=== PATIENT | female | born 1940 | race Caucasian/White ===

== ENCOUNTER 2022-08-05 19:42 | Emergency (ER) | payer MEDICARE ==
[~2022-08-05] VITALS: Ht 162.6 cm; Wt 63.5 kg
[~2022-08-05 19:42] MED LIST: CARISOPRODOL350 MG PO; CELEXA20 MG PO; CRESTOR10 MG PO; EVISTA60 MG PO; LEVAQUIN500 MG PO; LEVOFLOXACIN500 MG PO; PREDNISONE10 MG PO; TYLENOL WITH C1 EACH PO
[2022-08-05 22:06] VITALS: BP 147/41
== END 2022-08-05 22:20 | disposition home or self-care (01) ==
LOC: ER 19:58
DX: S09.90XA Unspecified injury of head, initial encounter (principal); W01.0XXA Fall on same level from slipping, tripping and stumbling without subsequent striking against object, initial encounter
CPT/HCPCS: 70450; 72125; 93005; 99283

== ENCOUNTER → 2023-03-19 | Outpatient (REF) | payer MEDICARE ==
[~2023-03-19] MED LIST changes: +ALENDRONATE SOD70 MG PO; +ARICEPT10 MG PO; +ASPIRIN CHEW81 MG PO; +ATORVASTATIN CA20 MG PO; +LISINOPRIL5 MG PO; +MACROBID 100 M100 MG PO; +MECLIZINE HCL12.5 MG PO; +MIDODRINE HCL5 MG PO; +NAMENDA10 MG PO; +ONDANSETRON ODT4 MG PO; +PANTOPRAZOLE SO40 MG PO; +TYLENOL #3 PO
== END ==
LOC: US 13:29
PROVIDERS: ATTEND Internal Medicine Gastroenterology
DX: R10.10 Upper abdominal pain, unspecified (principal); R11.0 Nausea
CPT/HCPCS: 76700

== ENCOUNTER 2024-02-11 10:23 | Inpatient (IN) | payer MEDICARE ==
[~2024-02-11] VITALS: Ht 162.6 cm; Wt 48.1 kg
[2024-02-11] VITALS (7 sets, daily range): BP systolic 117–131; BP diastolic 61–67; PULSE 77–86; RESP 16–18; TEMP 97.3–98.6; O2SAT 95–99
[2024-02-11 11:26] LABS: BASOPHILS # (AUTO) 0.1 (0.0-0.1); BASOPHILS % 0.5 % (0.0-1.0); EOSINOPHILS # (AUTO) 0.2 (0.0-0.4); EOSINOPHILS % 1.6 % (0.0-6.0); HEMATOCRIT 41.7 % (34.2-44.1); HEMOGLOBIN 13.2 g/dL (12.0-16.0); LYMPHOCYTES # (AUTO) 1.2 (1.0-3.2); MEAN CORPUSCULAR HEMOGLOBIN 29.3 pg (28-32); MEAN CORPUSCULAR HGB CONC 31.7 g/dL (31-35); MEAN CORPUSCULAR VOLUME 92.7 fL (81-99); MONOCYTES # (AUTO) 1.1 (0.2-0.8); MONOCYTES % 7.8 % (4.4-11.3); NEUTROPHILS # (AUTO) 10.9 (2.1-6.9); NEUTROPHILS % 80.2 % (38.7-80.0); PLATELET COUNT 155 x10e3/uL (140-360); RED CELL DISTRIBUTION WIDTH 13.2 % (11.7-14.4); WHITE BLOOD COUNT 13.54 x10e3/uL (4.8-10.8)
[2024-02-11 11:47] LABS: ALBUMIN 3.4 g/dL (3.5-5.0); ALBUMIN/GLOBULIN RATIO 1.1 (0.8-2.0); ANION GAP 17.2 mmol/L (8-16); BILIRUBIN,TOTAL 0.6 mg/dL (0.2-1.2); CREATININE, SERUM 1.43 mg/dL (0.57-1.11); POTASSIUM 4.2 mmol/L (3.5-5.1); TOTAL PROTEIN 6.6 g/dL (6.5-8.1)
[2024-02-11] MEDS: SODIUM CHLORIDE 0.9% 1000ML 1,000 ML IV ONE (14:00)
[2024-02-11] MEDS: ACETAMINOPHEN 325 MG TAB PO ONE (14:01)
[2024-02-11] MEDS ORDERED: ACETAMINOPHEN 325 MG TAB ONE (14:02)
[2024-02-11] MEDS: SODIUM CHLORIDE 0.9% 1000ML 1,000 ML IV SCH (16:27)
[2024-02-11 17:59] LABS: BODY FLUID COLOR YELLOW; BODY FLUID TYPE PERITONEAL
[2024-02-11] MEDS ORDERED: MIDODRINE HCL 5 MG TABLET PO PRN (18:00)
[2024-02-11 18:38] LABS: BODY FLUID APPEARANCE CLOUDY; RBC,BODY FLUID 4000 cells/uL; WBC,BODY FLUID 1900 cells/uL
[2024-02-11 19:53] LABS: LYMPHOCYTES,BODY FLUID 46 %; MONO/MACROPHG,BODY FLUID 11 %; NEUTROPHILS,BODY FLUID 15 %; OTHER CELLS,BODY FLUID 28 %; TOTAL CELLS COUNTED (DIFF) 100
[2024-02-11] MEDS: ACETAMINOPHEN 325 MG TAB PO PRN (21:47)
[2024-02-12] VITALS (8 sets, daily range): BP systolic 120–152; BP diastolic 45–82; PULSE 66–94; RESP 16–19; TEMP 97–98.2; O2SAT 95–98
[2024-02-12 06:19] LABS: BASOPHILS # (AUTO) 0.1 (0.0-0.1); BASOPHILS % 0.4 % (0.0-1.0); EOSINOPHILS # (AUTO) 0.2 (0.0-0.4); EOSINOPHILS % 1.2 % (0.0-6.0); HEMATOCRIT 38.1 % (34.2-44.1); HEMOGLOBIN 11.8 g/dL (12.0-16.0); LYMPHOCYTES # (AUTO) 1.5 (1.0-3.2); MEAN CORPUSCULAR HEMOGLOBIN 29.1 pg (28-32); MEAN CORPUSCULAR VOLUME 93.8 fL (81-99); MONOCYTES # (AUTO) 1.1 (0.2-0.8); MONOCYTES % 8.1 % (4.4-11.3); NEUTROPHILS # (AUTO) 10.8 (2.1-6.9); NEUTROPHILS % 78.5 % (38.7-80.0); PLATELET COUNT 136 x10e3/uL (140-360); RED BLOOD COUNT 4.06 x10e6/uL (3.6-5.1); RED CELL DISTRIBUTION WIDTH 13.2 % (11.7-14.4); WHITE BLOOD COUNT 13.78 x10e3/uL (4.8-10.8)
[2024-02-12 06:40] LABS: ALBUMIN 2.8 g/dL (3.5-5.0); ALBUMIN/GLOBULIN RATIO 1.1 (0.8-2.0); ANION GAP 13.8 mmol/L (8-16); BILIRUBIN,TOTAL 0.5 mg/dL (0.2-1.2); CALCIUM 8.7 mg/dL (8.4-10.2); CREATININE, SERUM 1.19 mg/dL (0.57-1.11); POTASSIUM 3.8 mmol/L (3.5-5.1); TOTAL PROTEIN 5.3 g/dL (6.5-8.1)
[2024-02-12] MEDS: CEFTRIAXONE 2 GM in SODIUM CHLORIDE 0.9% 100 ML IV SCH (15:04)
[2024-02-12] MEDS: Morphine 2mg Syringe 2 MG/ML SYR IV PRN (17:36)
[2024-02-12] MEDS: DONEPEZIL HCL 5 MG TAB PO SCH (21:20)
[2024-02-13] VITALS: BP 128/64; PULSE 89; RESP 16; TEMP 97.5; O2SAT 95
[2024-02-13 05:33] LABS: BASOPHILS # (AUTO) 0.1 (0.0-0.1); BASOPHILS % 0.4 % (0.0-1.0); EOSINOPHILS # (AUTO) 0.1 (0.0-0.4); EOSINOPHILS % 0.7 % (0.0-6.0); HEMATOCRIT 36.9 % (34.2-44.1); HEMOGLOBIN 11.8 g/dL (12.0-16.0); LYMPHOCYTES # (AUTO) 1.2 (1.0-3.2); MEAN CORPUSCULAR HEMOGLOBIN 29.7 pg (28-32); MEAN CORPUSCULAR VOLUME 92.9 fL (81-99); MONOCYTES % 7.3 % (4.4-11.3); NEUTROPHILS # (AUTO) 11.1 (2.1-6.9); NEUTROPHILS % 81.4 % (38.7-80.0); PLATELET COUNT 144 x10e3/uL (140-360); RED BLOOD COUNT 3.97 x10e6/uL (3.6-5.1); RED CELL DISTRIBUTION WIDTH 13.4 % (11.7-14.4); WHITE BLOOD COUNT 13.65 x10e3/uL (4.8-10.8)
[2024-02-13 05:47] LABS: ALBUMIN 2.6 g/dL (3.5-5.0); ANION GAP 12.9 mmol/L (8-16); BILIRUBIN,TOTAL 0.4 mg/dL (0.2-1.2); CALCIUM 8.4 mg/dL (8.4-10.2); CREATININE, SERUM 1.13 mg/dL (0.57-1.11); MAGNESIUM 1.9 MG/DL (1.3-2.1); POTASSIUM 3.9 mmol/L (3.5-5.1); TOTAL PROTEIN 5.1 g/dL (6.5-8.1)
[2024-02-13 06:23] VITALS: BP 139/66; PULSE 88; RESP 16; TEMP 97.3; O2SAT 97
[2024-02-13 07:08] LABS: FERRITIN 185.26 ng/mL (4.63-204.00)
[2024-02-13 08:00] VITALS: BP_SYST 139; BP_SYST 144; BP_DIAS 66; BP_DIAS 68; PULSE 87; PULSE 88; RESP 16; RESP 20; TEMP 97.3; TEMP 97.7; O2SAT 97; O2SAT 98
[2024-02-13] MEDS: MEMANTINE 28 MG PO SCH (09:00)
[2024-02-13] MEDS: DICYCLOMINE HCL 10 MG CAP PO PRN (10:57)
[2024-02-13 12:00] VITALS: BP 126/50; PULSE 88; RESP 18; TEMP 98.3; O2SAT 100
[2024-02-13 14:22] LABS: ALPHA FETO-PROTEIN 2.6 ng/mL (0.0-8.7)
[2024-02-13 19:30] LABS: BILIRUBIN,URINE NEGATIVE (NEGATIVE); CLARITY,URINE CLOUDY (CLEAR); COLOR,URINE YELLOW (YELLOW); GLUCOSE, URINE NEGATIVE (NEGATIVE); KETONES,URINE NEGATIVE (NEGATIVE); LEUKOCYTE ESTERASE ,URINE NEGATIVE (NEGATIVE); NITRITE,URINE NEGATIVE (NEGATIVE); PH,URINE 5.5 (5 - 7); PROTEIN,URINE DIPSTICK 1+ (NEGATIVE); URINE UROBILINOGEN 0.2 mg/dL (0.2 - 1)
[2024-02-13 19:42] LABS: AMORPHOUS SEDIMENT,URINE MANY (FEW); BACTERIA,URINE MANY /HPF; EPITHELIAL CELLS,URINE FEW /LPF; URIC ACID CRYSTALS,URINE FEW (FEW)
[2024-02-13 20:00] VITALS: BP 116/50; PULSE 86; RESP 17; TEMP 98.4; O2SAT 100
[2024-02-14] VITALS (7 sets, daily range): BP systolic 113–149; BP diastolic 48–75; PULSE 72–90; RESP 17–18; TEMP 97.3–98.9; O2SAT 97–100
[2024-02-14 05:59] LABS: BASOPHILS # (AUTO) 0.1 (0.0-0.1); BASOPHILS % 0.4 % (0.0-1.0); EOSINOPHILS # (AUTO) 0.1 (0.0-0.4); EOSINOPHILS % 0.9 % (0.0-6.0); HEMATOCRIT 35.1 % (34.2-44.1); HEMOGLOBIN 10.9 g/dL (12.0-16.0); LYMPHOCYTES # (AUTO) 1.2 (1.0-3.2); LYMPHOCYTES % 8.1 % (18.0-39.1); MEAN CORPUSCULAR HEMOGLOBIN 29.5 pg (28-32); MEAN CORPUSCULAR HGB CONC 31.1 g/dL (31-35); MEAN CORPUSCULAR VOLUME 95.1 fL (81-99); MONOCYTES # (AUTO) 1.3 (0.2-0.8); MONOCYTES % 8.8 % (4.4-11.3); NEUTROPHILS # (AUTO) 11.9 (2.1-6.9); NEUTROPHILS % 80.5 % (38.7-80.0); PLATELET COUNT 125 x10e3/uL (140-360); RED BLOOD COUNT 3.69 x10e6/uL (3.6-5.1); RED CELL DISTRIBUTION WIDTH 13.8 % (11.7-14.4); WHITE BLOOD COUNT 14.72 x10e3/uL (4.8-10.8)
[2024-02-14 06:29] LABS: ALBUMIN 2.2 g/dL (3.5-5.0); ALBUMIN/GLOBULIN RATIO 0.7 (0.8-2.0); BILIRUBIN,TOTAL 0.4 mg/dL (0.2-1.2); CALCIUM 8.1 mg/dL (8.4-10.2); CREATININE, SERUM 0.89 mg/dL (0.57-1.11); TOTAL PROTEIN 5.2 g/dL (6.5-8.1)
[2024-02-14 09:16] LABS: INR 1.09; PROTHROMBIN TIME 14.7 seconds (11.9-14.5)
[2024-02-14] MEDS: SODIUM CHLORIDE 0.9% 250ML 250 ML ONE (09:39)
[2024-02-15] VITALS (11 sets, daily range): BP systolic 118–154; BP diastolic 52–65; PULSE 64–81; RESP 16–19; TEMP 98.1–99; O2SAT 94–98
[2024-02-15 06:07] LABS: BASOPHILS # (AUTO) 0.1 (0.0-0.1); BASOPHILS % 0.9 % (0.0-1.0); EOSINOPHILS # (AUTO) 0.3 (0.0-0.4); EOSINOPHILS % 2.7 % (0.0-6.0); HEMATOCRIT 37.7 % (34.2-44.1); HEMOGLOBIN 11.1 g/dL (12.0-16.0); LYMPHOCYTES % 8.1 % (18.0-39.1); MEAN CORPUSCULAR HEMOGLOBIN 29.3 pg (28-32); MEAN CORPUSCULAR HGB CONC 29.4 g/dL (31-35); MEAN CORPUSCULAR VOLUME 99.5 fL (81-99); MONOCYTES # (AUTO) 1.1 (0.2-0.8); MONOCYTES % 8.9 % (4.4-11.3); NEUTROPHILS # (AUTO) 9.5 (2.1-6.9); NEUTROPHILS % 78.2 % (38.7-80.0); PLATELET COUNT 131 x10e3/uL (140-360); RED BLOOD COUNT 3.79 x10e6/uL (3.6-5.1); RED CELL DISTRIBUTION WIDTH 14.2 % (11.7-14.4); WHITE BLOOD COUNT 12.17 x10e3/uL (4.8-10.8)
[2024-02-15 06:43] LABS: ALBUMIN/GLOBULIN RATIO 0.7 (0.8-2.0); ANION GAP 11.2 mmol/L (8-16); BILIRUBIN,TOTAL 0.4 mg/dL (0.2-1.2); CREATININE, SERUM 0.82 mg/dL (0.57-1.11); POTASSIUM 4.2 mmol/L (3.5-5.1); TOTAL PROTEIN 4.8 g/dL (6.5-8.1)
[2024-02-15] MEDS: TRAMADOL HCL 50 MG TAB PO PRN (08:50)
[2024-02-15] MEDS: ONDANSETRON HCL INJ 2MG/ML 2ML 2 MG/ML VIAL IV PRN (12:12)
[2024-02-15] MEDS ORDERED: LIDOCAINE HCL 1% LOCAL INJ 20 ML VIAL ONE (14:19)
[2024-02-15] MEDS ORDERED: MIDAZOLAM HCL 2 MG/2 ML VIAL ONE (14:35)
[2024-02-15] MEDS ORDERED: FENTANYL CITRATE/PF 100MCG/2 ML INJ ONE (14:35)
[2024-02-15] MEDS ORDERED: CIPRO500 MG PO (17:57)
[2024-02-15] MEDS ORDERED: DICYCLOMINE HCL10 MG PO (17:57)
[2024-02-16] VITALS: BP 131/59; PULSE 80; RESP 18; TEMP 98.4; O2SAT 95
[2024-02-16 06:09] LABS: BASOPHILS # (AUTO) 0.1 (0.0-0.1); BASOPHILS % 0.4 % (0.0-1.0); EOSINOPHILS # (AUTO) 0.2 (0.0-0.4); EOSINOPHILS % 1.6 % (0.0-6.0); HEMATOCRIT 34.5 % (34.2-44.1); HEMOGLOBIN 10.6 g/dL (12.0-16.0); MEAN CORPUSCULAR HGB CONC 30.7 g/dL (31-35); MEAN CORPUSCULAR VOLUME 94.3 fL (81-99); MONOCYTES # (AUTO) 1.2 (0.2-0.8); MONOCYTES % 9.6 % (4.4-11.3); NEUTROPHILS # (AUTO) 10.1 (2.1-6.9); NEUTROPHILS % 79.1 % (38.7-80.0); PLATELET COUNT 156 x10e3/uL (140-360); RED BLOOD COUNT 3.66 x10e6/uL (3.6-5.1); RED CELL DISTRIBUTION WIDTH 13.9 % (11.7-14.4); WHITE BLOOD COUNT 12.77 x10e3/uL (4.8-10.8)
[2024-02-16 06:52] LABS: ALBUMIN 1.9 g/dL (3.5-5.0); ALBUMIN/GLOBULIN RATIO 0.6 (0.8-2.0); ANION GAP 13.1 mmol/L (8-16); BILIRUBIN,TOTAL 0.4 mg/dL (0.2-1.2); CALCIUM 8.5 mg/dL (8.4-10.2); CREATININE, SERUM 0.86 mg/dL (0.57-1.11); MAGNESIUM 1.8 MG/DL (1.3-2.1); POTASSIUM 4.1 mmol/L (3.5-5.1); TOTAL PROTEIN 4.9 g/dL (6.5-8.1)
[2024-02-16 08:37] VITALS: BP 145/64; PULSE 71; RESP 18; TEMP 97.9; O2SAT 97
[2024-02-16 11:01] VITALS: BP 145/64; PULSE 71; RESP 18; TEMP 97.9; O2SAT 97
[2024-02-16 12:31] VITALS: BP 149/57; PULSE 74; RESP 20; TEMP 98; O2SAT 95
[2024-02-16] MEDS ORDERED: ONDANSETRON HCL 4 MG ORAL DISINTEGRATING TAB PO PRN (13:45)
[2024-02-16 15:42] VITALS: BP 122/43; PULSE 74; RESP 18; TEMP 98.4; O2SAT 96
[2024-02-16] MEDS ORDERED: PANTOPRAZOLE SOD 40 MG TABEC PO SCH (16:30)
== END 2024-02-16 15:30 | disposition home health service (06) | DRG 987 ==
LOC: ER 10:47 → ERHOLD 13:15 → MED/SURG2 14:54 → OBSVTOIN 02-12 13:45
PROVIDERS: ADMIT Internal Medicine; ATTEND Internal Medicine
PROC: 0W9G3ZZ Drainage of Peritoneal Cavity, Percutaneous Approach (ICD-10-PCS; principal; 2024-02-11)
PROC: 07B73ZX Excision of Thorax Lymphatic, Percutaneous Approach, Diagnostic (ICD-10-PCS; 2024-02-15)
DX: C54.9 Malignant neoplasm of corpus uteri, unspecified (principal); K65.2 Spontaneous bacterial peritonitis; C78.6 Secondary malignant neoplasm of retroperitoneum and peritoneum; R18.0 Malignant ascites; N17.9 Acute kidney failure, unspecified; Z68.1 Body mass index [BMI] 19.9 or less, adult; F02.B4 Dementia in other diseases classified elsewhere, moderate, with anxiety; E44.0 Moderate protein-calorie malnutrition; G30.9 Alzheimer's disease, unspecified; R19.7 Diarrhea, unspecified; I10 Essential (primary) hypertension; E78.5 Hyperlipidemia, unspecified; Z71.3 Dietary counseling and surveillance; B00.9 Herpesviral infection, unspecified; D72.829 Elevated white blood cell count, unspecified; D64.9 Anemia, unspecified; D69.6 Thrombocytopenia, unspecified; F33.41 Major depressive disorder, recurrent, in partial remission; K21.9 Gastro-esophageal reflux disease without esophagitis; M81.0 Age-related osteoporosis without current pathological fracture; Z80.9 Family history of malignant neoplasm, unspecified; D75.89 Other specified diseases of blood and blood-forming organs; Z79.899 Other long term (current) drug therapy
CPT/HCPCS: 36415; 38505; 49083; 74176; 74470; 77012; 80053; 81001; 82040; 82105; 82378; 82607; 82728; 83540; 83605; 83615; 83690; 83735; 84157; 84443; 84466; 85025; 85610; 86301; 86304; 87070; 87205; 88112; 88305; 88342; 89051; 99153; 99284; G0378; J0696; J2003; J2250; J2270; J2405; J2470; J7030; J7050

== ENCOUNTER 2024-02-22 07:15 | Inpatient (IN) | payer MEDICARE ==
[~2024-02-22] VITALS: Ht 162.6 cm; Wt 48.1 kg
[2024-02-22 07:15] VITALS: TEMP 98.2
[~2024-02-22 07:15] MED LIST changes: +CIPRO500 MG PO; +DICYCLOMINE HCL10 MG PO
[2024-02-22 07:36] LABS: BASOPHILS # (AUTO) 0.1 (0.0-0.1); BASOPHILS % 0.4 % (0.0-1.0); EOSINOPHILS # (AUTO) 0.2 (0.0-0.4); EOSINOPHILS % 1.1 % (0.0-6.0); HEMATOCRIT 36.4 % (34.2-44.1); HEMOGLOBIN 11.4 g/dL (12.0-16.0); LYMPHOCYTES # (AUTO) 0.9 (1.0-3.2); LYMPHOCYTES % 4.8 % (18.0-39.1); MEAN CORPUSCULAR HEMOGLOBIN 28.5 pg (28-32); MEAN CORPUSCULAR HGB CONC 31.3 g/dL (31-35); MONOCYTES # (AUTO) 1.1 (0.2-0.8); NEUTROPHILS # (AUTO) 16.2 (2.1-6.9); NEUTROPHILS % 86.4 % (38.7-80.0); PLATELET COUNT 206 x10e3/uL (140-360); RED CELL DISTRIBUTION WIDTH 14.1 % (11.7-14.4); WHITE BLOOD COUNT 18.76 x10e3/uL (4.8-10.8)
[2024-02-22 08:02] LABS: ALBUMIN 2.5 g/dL (3.5-5.0); ALBUMIN/GLOBULIN RATIO 0.8 (0.8-2.0); ANION GAP 14.4 mmol/L (8-16); BILIRUBIN,TOTAL 0.7 mg/dL (0.2-1.2); CALCIUM 9.3 mg/dL (8.4-10.2); CREATININE, SERUM 1.02 mg/dL (0.57-1.11); POTASSIUM 4.4 mmol/L (3.5-5.1); TOTAL PROTEIN 5.5 g/dL (6.5-8.1)
[2024-02-22] MEDS ORDERED: IOPAMIDOL 370 MG/ML 100 ML INFUS..BTL INJ ONE (08:37)
[2024-02-22 09:02] LABS: CLARITY,URINE SL CLOUDY (CLEAR); COLOR,URINE YELLOW (YELLOW)
[2024-02-22 09:03] LABS: BILIRUBIN,URINE NEGATIVE (NEGATIVE); GLUCOSE, URINE NEGATIVE (NEGATIVE); KETONES,URINE NEGATIVE (NEGATIVE); LEUKOCYTE ESTERASE ,URINE NEGATIVE (NEGATIVE); NITRITE,URINE NEGATIVE (NEGATIVE); PH,URINE 5.5 (5 - 7); PROTEIN,URINE DIPSTICK 1+ (NEGATIVE); URINE UROBILINOGEN 0.2 mg/dL (0.2 - 1)
[2024-02-22 09:08] LABS: BACTERIA,URINE MODERATE /HPF; EPITHELIAL CELLS,URINE MANY /LPF; RBC,URINE 0-5 /HPF (0-5); WBC,URINE (MAN) 0-5 /HPF (0-5)
[2024-02-22] MEDS ORDERED: HEPARIN SOD/DEXTROSE 5% 25000 UNIT/250 ML BAG IV SCH (09:45)
[2024-02-22] MEDS ORDERED: HEPARIN SOD (PORCINE) 5,000 UNIT/ML VIAL IV ONE (09:45)
[2024-02-22] MEDS ORDERED: SODIUM CHLORIDE FLUSH 10 ML SYR INJ PRN (09:45)
[2024-02-22] MEDS ORDERED: ONDANSETRON HCL INJ 2MG/ML 2ML 2 MG/ML VIAL IV PRN (09:45)
[2024-02-22] MEDS ORDERED: HEPARIN 25,000 UNIT/D5W 250ML 250 ML IV SCH (10:00)
[2024-02-22] MEDS ORDERED: ACETAMINOPHEN 325 MG TAB PO PRN (10:45)
[2024-02-22 11:56] LABS: INR 1.11; PROTHROMBIN TIME 14.9 seconds (11.9-14.5)
[2024-02-22 12:01] VITALS: PULSE 91; RESP 18
[2024-02-22] MEDS: SODIUM CHLORIDE 0.9% 1000ML 1,000 ML IV ONE (12:06)
[2024-02-22] MEDS: CEFTRIAXONE 2 GM in SODIUM CHLORIDE 0.9% 100 ML IV SCH (12:08)
[2024-02-22] MEDS: ONDANSETRON HCL INJ 2MG/ML 2ML 2 MG/ML VIAL IV STA (12:09)
[2024-02-22] MEDS: Morphine 2mg Syringe 2 MG/ML SYR IV ONE (12:09)
[2024-02-22] MEDS ORDERED: SODIUM CHLORIDE 0.9% 1000ML 1,000 ML ONE (12:10)
[2024-02-22 13:10] VITALS: BP 131/75; PULSE 85; RESP 19; TEMP 98.2; O2SAT 97
[2024-02-22 13:50] VITALS: BP 131/75; PULSE 85; RESP 19; TEMP 98.2; O2SAT 97
[2024-02-22] MEDS: HEPARIN SOD (PORCINE) 5,000 UNIT/ML VIAL IV ONE (15:40)
[2024-02-22 16:00] VITALS: BP 129/61; PULSE 87; RESP 23; TEMP 98.1; O2SAT 100
[2024-02-22] MEDS: ENOXAPARIN SOD INJ 60 MG/0.6 ML SYR SC SCH (17:13)
[2024-02-22 20:00] VITALS: BP 148/64; PULSE 89; RESP 16; TEMP 97.7; O2SAT 97
[2024-02-23] VITALS (7 sets, daily range): BP systolic 124–139; BP diastolic 58–92; PULSE 81–94; RESP 16–23; TEMP 97.9–98.3; O2SAT 92–100
[2024-02-23 05:45] LABS: BASOPHILS # (AUTO) 0.1 (0.0-0.1); BASOPHILS % 0.5 % (0.0-1.0); EOSINOPHILS # (AUTO) 0.4 (0.0-0.4); EOSINOPHILS % 2.4 % (0.0-6.0); HEMATOCRIT 34.6 % (34.2-44.1); HEMOGLOBIN 10.3 g/dL (12.0-16.0); LYMPHOCYTES # (AUTO) 0.9 (1.0-3.2); LYMPHOCYTES % 5.7 % (18.0-39.1); MEAN CORPUSCULAR HGB CONC 29.8 g/dL (31-35); MONOCYTES % 6.9 % (4.4-11.3); NEUTROPHILS # (AUTO) 12.5 (2.1-6.9); PLATELET COUNT 245 x10e3/uL (140-360); RED BLOOD COUNT 3.68 x10e6/uL (3.6-5.1); RED CELL DISTRIBUTION WIDTH 14.1 % (11.7-14.4); WHITE BLOOD COUNT 14.99 x10e3/uL (4.8-10.8)
[2024-02-23 06:08] LABS: ALBUMIN 2.2 g/dL (3.5-5.0); ALBUMIN/GLOBULIN RATIO 0.8 (0.8-2.0); ANION GAP 14.4 mmol/L (8-16); BILIRUBIN,TOTAL 0.3 mg/dL (0.2-1.2); CALCIUM 8.8 mg/dL (8.4-10.2); CREATININE, SERUM 0.94 mg/dL (0.57-1.11); POTASSIUM 4.4 mmol/L (3.5-5.1); TOTAL PROTEIN 4.9 g/dL (6.5-8.1)
[2024-02-23] MEDS: Morphine 2mg Syringe 2 MG/ML SYR IV PRN (12:02)
[2024-02-23 16:59] LABS: BODY FLUID APPEARANCE CLOUDY; BODY FLUID COLOR YELLOW; BODY FLUID TYPE PLEURAL
[2024-02-23 17:00] LABS: BODY FLUID APPEARANCE SL.CLOUDY; BODY FLUID COLOR YELLOW; BODY FLUID TYPE PERITONEAL
[2024-02-23 17:11] LABS: WBC,BODY FLUID 361 cells/uL
[2024-02-23 17:12] LABS: RBC,BODY FLUID 1000 cells/uL
[2024-02-23 17:13] LABS: RBC,BODY FLUID 1000 cells/uL; WBC,BODY FLUID 688 cells/uL
[2024-02-23 18:43] LABS: LYMPHOCYTES,BODY FLUID 16 %; MONO/MACROPHG,BODY FLUID 33 %; NEUTROPHILS,BODY FLUID 24 %; TOTAL CELLS COUNTED (DIFF) 100
[2024-02-23 18:44] LABS: OTHER CELLS,BODY FLUID 27 %
[2024-02-23 18:50] LABS: LYMPHOCYTES,BODY FLUID 12 %; MONO/MACROPHG,BODY FLUID 33 %; NEUTROPHILS,BODY FLUID 50 %; OTHER CELLS,BODY FLUID 5 %; TOTAL CELLS COUNTED (DIFF) 100
[2024-02-24] VITALS (8 sets, daily range): BP systolic 130–160; BP diastolic 54–70; PULSE 77–84; RESP 17–23; TEMP 98–98.8; O2SAT 96–100
[2024-02-24 05:31] LABS: BASOPHILS # (AUTO) 0.1 (0.0-0.1); BASOPHILS % 0.6 % (0.0-1.0); EOSINOPHILS # (AUTO) 0.3 (0.0-0.4); HEMOGLOBIN 11.4 g/dL (12.0-16.0); MEAN CORPUSCULAR HEMOGLOBIN 27.8 pg (28-32); MEAN CORPUSCULAR HGB CONC 30.8 g/dL (31-35); MEAN CORPUSCULAR VOLUME 90.2 fL (81-99); MONOCYTES % 6.3 % (4.4-11.3); NEUTROPHILS # (AUTO) 13.3 (2.1-6.9); PLATELET COUNT 357 x10e3/uL (140-360); RED CELL DISTRIBUTION WIDTH 14.5 % (11.7-14.4); WHITE BLOOD COUNT 15.81 x10e3/uL (4.8-10.8)
[2024-02-24 05:52] LABS: ALBUMIN 2.1 g/dL (3.5-5.0); ALBUMIN/GLOBULIN RATIO 0.7 (0.8-2.0); ANION GAP 17.7 mmol/L (8-16); BILIRUBIN,TOTAL 0.3 mg/dL (0.2-1.2); CALCIUM 9.2 mg/dL (8.4-10.2); CREATININE, SERUM 1.01 mg/dL (0.57-1.11); MAGNESIUM 2.3 MG/DL (1.3-2.1); TOTAL PROTEIN 5.2 g/dL (6.5-8.1)
[2024-02-24 06:07] LABS: POTASSIUM 5.7 mmol/L (3.5-5.1)
[2024-02-24 07:12] LABS: ALBUMIN 2.1 g/dL (3.5-5.0); ALBUMIN/GLOBULIN RATIO 0.7 (0.8-2.0); ANION GAP 16.6 mmol/L (8-16); BILIRUBIN,TOTAL 0.3 mg/dL (0.2-1.2); CALCIUM 8.8 mg/dL (8.4-10.2); CREATININE, SERUM 0.95 mg/dL (0.57-1.11); POTASSIUM 4.6 mmol/L (3.5-5.1)
[2024-02-24] MEDS ORDERED: LOVENOX60 MG/0.6 SC (10:36)
[2024-02-24] MEDS: FUROSEMIDE 20 MG TAB PO SCH (11:46)
[2024-02-24] MEDS: HYDROCODONE/APAP 5MG-325MG TAB PO PRN (11:46)
[2024-02-25 00:35] VITALS: BP 136/57; PULSE 92; RESP 22; TEMP 98.6; O2SAT 96
[2024-02-25 04:55] VITALS: BP 141/66; PULSE 95; RESP 21; TEMP 98.3; O2SAT 98
[2024-02-25 07:17] LABS: BASOPHILS # (AUTO) 0.1 (0.0-0.1); BASOPHILS % 0.9 % (0.0-1.0); EOSINOPHILS # (AUTO) 0.4 (0.0-0.4); EOSINOPHILS % 2.6 % (0.0-6.0); HEMATOCRIT 39.1 % (34.2-44.1); HEMOGLOBIN 11.7 g/dL (12.0-16.0); LYMPHOCYTES # (AUTO) 0.8 (1.0-3.2); LYMPHOCYTES % 6.2 % (18.0-39.1); MEAN CORPUSCULAR HEMOGLOBIN 27.5 pg (28-32); MEAN CORPUSCULAR HGB CONC 29.9 g/dL (31-35); MONOCYTES # (AUTO) 0.9 (0.2-0.8); MONOCYTES % 6.5 % (4.4-11.3); NEUTROPHILS # (AUTO) 11.2 (2.1-6.9); NEUTROPHILS % 82.3 % (38.7-80.0); PLATELET COUNT 371 x10e3/uL (140-360); RED BLOOD COUNT 4.25 x10e6/uL (3.6-5.1); RED CELL DISTRIBUTION WIDTH 14.5 % (11.7-14.4); WHITE BLOOD COUNT 13.62 x10e3/uL (4.8-10.8)
[2024-02-25 08:00] VITALS: BP 137/51; PULSE 88; RESP 20; TEMP 99.1; O2SAT 99
[2024-02-25 08:41] VITALS: BP 141/66; PULSE 95; RESP 21; TEMP 98.3; O2SAT 98
[2024-02-29 10:29] LABS: TOTAL PROTEIN,BODY FLUID 2.6 g/dL
== END 2024-02-25 11:11 | disposition hospice, inpatient (51) | DRG 299 ==
LOC: ER 07:22 → ERHOLD 09:49 → MED/SURG 13:09
PROVIDERS: ADMIT Internal Medicine; ATTEND Internal Medicine
PROC: 0W9G3ZZ Drainage of Peritoneal Cavity, Percutaneous Approach (ICD-10-PCS; principal; 2024-02-23)
PROC: 0W993ZZ Drainage of Right Pleural Cavity, Percutaneous Approach (ICD-10-PCS; 2024-02-23)
DX: I82.413 Acute embolism and thrombosis of femoral vein, bilateral (principal); K65.2 Spontaneous bacterial peritonitis; C78.6 Secondary malignant neoplasm of retroperitoneum and peritoneum; R18.0 Malignant ascites; C79.02 Secondary malignant neoplasm of left kidney and renal pelvis; J91.0 Malignant pleural effusion; E44.0 Moderate protein-calorie malnutrition; Z68.1 Body mass index [BMI] 19.9 or less, adult; I82.433 Acute embolism and thrombosis of popliteal vein, bilateral; I82.443 Acute embolism and thrombosis of tibial vein, bilateral; I82.812 Embolism and thrombosis of superficial veins of left lower extremity; C80.1 Malignant (primary) neoplasm, unspecified; D64.9 Anemia, unspecified; D72.829 Elevated white blood cell count, unspecified; I10 Essential (primary) hypertension; E78.5 Hyperlipidemia, unspecified; G30.9 Alzheimer's disease, unspecified; F02.80 Dementia in other diseases classified elsewhere, unspecified severity, without behavioral disturbance, psychotic disturbance, mood disturbance, and anxiety; M81.0 Age-related osteoporosis without current pathological fracture; F32.A Depression, unspecified; F41.9 Anxiety disorder, unspecified; B00.9 Herpesviral infection, unspecified; K21.9 Gastro-esophageal reflux disease without esophagitis; Z80.9 Family history of malignant neoplasm, unspecified; Z51.5 Encounter for palliative care; Z79.899 Other long term (current) drug therapy; Z79.2 Long term (current) use of antibiotics
CPT/HCPCS: 32555; 36415; 49083; 71045; 74177; 74470; 80053; 81001; 82040; 82945; 83615; 83690; 83735; 84157; 85025; 85610; 85730; 87070; 87205; 88112; 88305; 88342; 89051; 93970; 99252; 99285; C1729; J0696; J1650; J2270; J2405; J7030; J7050; Q9967